=== PATIENT | male | born 1985 | race Caucasian/White ===

== ENCOUNTER 2025-06-19 14:26 | Emergency (ER) | payer SELFPAY ==
[2025-06-19 14:51] VITALS: BP 161/89; PULSE 84; RESP 16; TEMP 36.6; O2SAT 93
--- NOTE | 2025-06-19 15:24 | W.ED.ANIMALB ---
HPI - Animal Bite General: Chief Complaint: Animal Bite Stated Complaint: dog ibte to L arm Time Seen by Provider: 06/19/25 15:12 Source: patient Mode of arrival: ambulatory Limitations: no limitations History of Present Illness: Patient is a 40-year-old male who presents to ED today with a complaint of a dog bite to his left forearm that he sustained just prior to arrival. He states he was breaking up 2 dogs fighting. He states the dogs are indoors and up-to-date on immunizations. His last tetanus is unknown. He has no other injuries or complaints at this time. complaint: animal bite Onset (ago): hour(s) Animal: dog Description of animal: household pet, immunizations UTD and appeared well Mechanism: bite Location - Extremities: Left: forearm Context: animals fighting Associated symptoms: Reports no associated symptoms; Deny fever(s) Treatments prior to arrival: wound dressing(s) and irrigation Related Data Previous Rx's ?Medication ?Instructions ?Recorded amoxicillin 875 mg-potassium 1 tab PO BID #14 tabs 06/19/25 clavulanate 125 mg tablet Allergies Allergy/AdvReac Type Severity Reaction Status Date / Time No Known Allergies Allergy Verified 06/19/25 14:54 Review of Systems Const: Denies: fever(s) Musc: Reports: extremity pain; Denies: extremity swelling, joint pain or joint swelling Skin/Breast: Reports: other (dog bite/puncture wounds) Neuro: Denies: numbness in extremities or sensory changes Physical Exam Const: COMMON NORMALS: no acute distress, average body habitus, no limitations, healthy appearing, alert and well nourished Extremity: COMMON NORMALS: full ROM and capillary refill normal GENERAL: Yes normal exam except as noted LEFT UPPER EXTREMITY: Yes lower arm (two puncture wounds L forearm-no redness, streaking, edema) Left lower arm: Yes neurovascular exam (normal) Neuro: COMMON NORMALS: moves all extremities, no focal motor deficits and no sensory deficits noted SENSORIUM/ORIENTATION: Yes alert Skin: NARRATIVE SKIN EXAM: two puncture sites L forearm Procedures Laceration Laceration 1: Site: upper extremity Side (If applicable): left Size (cm): 1.5 Description: linear Depth: simple, single layer Local Anesthetic: lidocaine 2% Amount of anesthesia used (mL): 1.0 Pre-repair: wound explored and irrigated extensively Skin layer closed with: other (prolene) Size (cm): 4-0 Number of sutures: 1 Technique: simple, interrupted Course Vital Signs: Vital signs: Vital Signs Temperature 97.8 F 06/19/25 14:51 Pulse Rate 84 06/19/25 14:51 Respiratory Rate 16 06/19/25 14:51 Blood Pressure 161/89 06/19/25 14:51 Pulse Oximetry 93 06/19/25 14:51 Oxygen Delivery Me thod Room Air 06/19/25 14:51 MDM - Animal Bite Medical Decision Making Both puncture sites were copiously irrigated. One puncture site was loosely closed using one stitch. The other puncture site will be left open. Tetanus was updated. He will be placed on prophylactic antibiotics. He does not require rabies PEP. Infection/wound care precautions discussed. Differential Diagnosis Likely bite by animal and dog bite Medical Records I reviewed the patient's medical records. No radiology studies performed this visit Discharge Plan Discharge Patient Disposition: Home Clinical Impression: Dog bite Qualifiers: Encounter type: initial encounter Qualified Code(s): W54.0XXA - Bitten by dog, initial encounter Condition: Stable Prescriptions: New amoxicillin-pot clavulanate 875-125 mg tablet 1 tab PO BID Qty: 14 0RF Discharge Orders: Discharge ED (Routine); Ordered 06/19/25 Ordered By: Bren Tse Patient Instructions: Animal Bite (ED), Patient Portal & [facility] Instructions Activity Restrictions/Additional Instructions: Keep wound/laceration clean with warm soap and water twice daily. Monitor for signs of infection such as redness, swelling, increased pain, or drainage. Please seek medical re-evaluation if these occur. If you received sutures today these will need to be removed (unless you were told by the provider that they are absorbable). The provider should have discussed with you the length of time until removal-7 days. Please fill your antibiotics and start them immediately. Print Language: American Coding Level of Care Code ED Remote Sensing Scientist for Tony Betancur
[2025-06-19] MEDS: lidocaine 2% INJ 20 mL INJECTION (15:33)
[2025-06-19] MEDS: tetanus-dipt-pertussis 0.5 mL SDV IM (15:34)
== END 2025-06-19 15:47 | disposition home or self-care (01) ==
PROVIDERS: Emergency Provider Physician Assistant
DX: S51.852A Open bite of left forearm, initial encounter (principal); W54.0XXA Bitten by dog, initial encounter
CPT/HCPCS: 12001; 90471; 90715; 99283; J9999